=== PATIENT | male | born 1965 | race Caucasian/White ===

== ENCOUNTER 2023-12-03 08:53 | Observation (INO) | payer BC ==
--- NOTE | 2023-12-03 09:05 | ED ---
General Adult HPI - General Chief complaint: Chest Pain Stated complaint: Chest Pain, sent by Cardio Time Seen by Provider: 12/03/23 08:59 Source: patient, family, RN notes reviewed Mode of arrival: ambulatory Limitations: no limitations - History of Present Illness Initial comments: Patient is a pleasant 58-year-old male presenting to the emergency department with concerns for chest discomfort. Onset of symptoms was around 2 or 3 in the morning. Patient was watching TV at that time. Discomfort has improved and is mild at this time. Patient does have nausea and lightheadedness that are near resolved. Patient did feel a little bit short of breath earlier. No history of similar symptoms previously. No calf pain. Patient had a recent abnormal stress test around a month ago - Related Data Home Medications Medication Instructions Recorded Confirmed Aspirin EC [Ecotrin Low Dose] 81 mg PO DAILY 12/03/23 12/03/23 Atorvastatin [Lipitor] 20 mg PO DAILY 12/03/23 12/03/23 Losartan/Hydrochlorothiazide 1 tab PO DAILY 12/03/23 12/03/23 [Hyzaar 100-25 Tablet] Metoprolol Succinate (ER) [Toprol 25 mg PO DAILY 12/03/23 12/03/23 Xl] Omeprazole Magnesium [PriLOSEC OTC] 20 mg PO DAILY 12/03/23 12/03/23 amLODIPine [Norvasc] 2.5 mg PO DAILY 12/03/23 12/03/23 Allergies Allergy/AdvReac Type Severity Reaction Status Date / Time No Known Allergies Allergy Verified 12/03/23 10:12 Review of Systems ROS Statement: Those systems with pertinent positive or pertinent negative responses have been documented in the HPI. ROS Other: All systems not noted in ROS Statement are negative. Constitutional: Denies: fever Eyes: Denies: eye pain ENT: Denies: ear pain Respiratory: Denies: cough Cardiovascular: Reports: as per HPI, chest pain Endocrine: Denies: fatigue Gastrointestinal: Denies: abdominal pain Genitourinary: Denies: dysuria Past Medical History Past Medical History: GERD/Reflux, Hypertension History of Any Multi-Drug Resistant Organisms: None Reported Past Surgical History: No Surgical Hx Reported Past Anesthesia/Blood Transfusion Reactions: No Reported Reaction Smoking Status: Never smoker Past Alcohol Use History: Occasional Past Drug Use History: None Reported - Past Family History Father Family Medical History: Cancer General Exam Limitations: no limitations General appearance: alert, in no apparent distress Head exam: Present: normocephalic Eye exam: Present: normal appearance Neck exam: Present: normal inspection Respiratory exam: Present: normal lung sounds bilaterally. Absent: chest wall tenderness Cardiovascular Exam: Present: regular rate, normal rhythm Expanded Peripheral pulses: 2+: Radial (R), Radial (L), Posterior Tibialis (R), Posterior Tibialis (L) GI/Abdominal exam: Present: soft. Absent: tenderness Extremities exam: Present: normal inspection. Absent: pedal edema, calf tenderness Neurological exam: Present: alert Psychiatric exam: Present: normal affect, normal mood Skin exam: Present: normal color Course Vital Signs 12/03/23 12/03/23 08:55 09:27 Temperature 98 F 98 F Pulse Rate 84 78 Respiratory 18 18 Rate Blood Pressure 180/113 169/114 O2 Sat by Pulse 96 96 Oximetry EKG Findings - EKG Results: EKG: interpreted by REGI (Nonspecific intraventricular conduction delay), sinus rhythm, normal axis, normal ST/T Medical Decision Making - Medical Decision Making Was pt. sent in by a medical professional or institution (, PA, [employer]ERTY [employer], urgent care, hospital, or prison...) When possible be specific @ -No Did you speak to anyone other than the patient for history (EMS, parent, family, police, friend...)? What history was obtained from this source @ -Family is present and provides history including recent abnormal stress test Did you review nursing and triage notes (agree or disagree)? Why? @ -I reviewed and agree with nursing and triage notes Were old charts reviewed (outside hosp., previous admission, EMS record, old EKG, old radiological studies, urgent care reports/EKG's, prison records)? Report findings @ -No old charts were reviewed Differential Diagnosis (chest pain, altered mental status, abdominal pain women, abdominal pain men, vaginal bleeding, weakness, fever, dyspnea, syncope, headache, dizziness, GI bleed, back pain, seizure, CVA, palpatations, mental health, musculoskeletal)? @ -Differential Chest Pain: Stable Angina, Unstable Angina, STEMI, NSTEMI Aortic Dissection, Pneumothorax, Musculoskeletal, Esophageal Spasm GERD, Cholecystitis, Pancreatitis, Zoster, this is not meant to be an all-inclusive list. EKG interpreted by me (3pts min.). @ -As above X-rays interpreted by me (1pt min.). @ -Chest x-ray without acute abnormality CT interpreted by me (1pt min.). @ -None done U/S interpreted by me (1pt. min.). @ -None done What testing was considered but not performed or refused? (CT, X-rays, U/S, labs)? Why? @ -None What meds were considered but not given or refused? Why? @ -None Did you discuss the management of the patient with other professionals (professionals i.e. DrKatie, PA, [employer], lab, RT, psych nurse, transition social worker, director of contracts, teacher, product safety officer, nurse case management)? Give summary @ -[facility] physician group, practitioner Elieser who will admit covering Dr. Davis Was smoking cessation discussed for >3mins.? @ -No Was critical care preformed (if so, how long)? @ -No Were there social determinants of health that impacted care today? How? (Homelessness, low income, unemployed, alcoholism, drug addiction, transportation, low edu. Level, literacy, decrease access to med. care, assisted, rehab)? @ -No Was there de-escalation of care discussed even if they declined (Discuss DNR or withdrawal of care, Hospice)? DNR status @ -No What co-morbidities impacted this encounter? (DM, HTN, Smoking, COPD, CAD, Cancer, CVA, ARF, Chemo, Hep., AIDS, mental health diagnosis, sleep apnea, morbid obesity)? @ -Recent abnormal stress test Was patient admitted / discharged? Hospital course, mention meds given and route, prescriptions, significant lab abnormalities, going to OR and other pertinent info. @ -Patient reevaluated and updated. Patient will be admitted with cardiac consult. Patient sees Dr. Hilario. Admission orders placed. Undiagnosed new problem with uncertain prognosis? @ -No Drug Therapy requiring intensive monitoring for toxicity (Heparin, Nitro, Insulin, Cardizem)? @ -No Were any procedures done? @ -No Diagnosis/symptom? @ -Chest pain, hypertensive urgency Acute, or Chronic, or Acute on Chronic? @ -Acute, acute Uncomplicated (without systemic symptoms) or Complicated (systemic symptoms)? @ -Default Side effects of treatment? @ -No Exacerbation, Progression, or Severe Exacerbation? @ -No Poses a threat to life or bodily function? How? (Chest pain, [place], [place], pneumonia, PE, COPD, DKA, ARF, appy, cholecystitis, CVA, Diverticulitis, Homicidal, Suicidal, threat to staff... and all critical care pts) @ -Potential threat to cardiac function - Lab Data Result diagrams: 12/03/23 09:13 12/03/23 09:13 Lab Results 12/03/23 12/03/23 12/03/23 Range/Units 09:13 09:13 09:13 WBC 7.5 (3.8-10.6) k/uL RBC 4.60 (4.30-5.90) m/uL Hgb 15.1 (13.0-17.5) gm/dL Hct 43.9 (39.0-53.0) % MCV 95.5 (80.0-100.0) fL MCH 32.9 (25.0-35.0) pg MCHC 34.5 (31.0-37.0) g/dL RDW 12.7 (11.5-15.5) % Plt Count 313 (150-450) k/uL MPV 7.8 Neutrophils % 51 % Lymphocytes % 35 % Monocytes % 7 % Eosinophils % 4 % Basophils % 1 % Neutrophils # 3.8 (1.3-7.7) k/uL Lymphocytes # 2.7 (1.0-4.8) k/uL Monocytes # 0.5 (0-1.0) k/uL Eosinophils # 0.3 (0-0.7) k/uL Basophils # 0.1 (0-0.2) k/uL PT 10.8 (10.0-12.5) sec INR 1.0 (<1.2) APTT 26.0 (22.0-30.0) sec D-Dimer 0.20 (<0.60) mg/L FEU Sodium 141 (137-145) mmol/L Potassium 3.2 L (3.5-5.1) mmol/L Chloride 106 (98-107) mmol/L Carbon Dioxide 26 (22-30) mmol/L Anion Gap 9 mmol/L BUN 27 H (9-20) mg/dL Creatinine 0.73 (0.66-1.25) mg/dL Est GFR (CKD-EPI)AfAm >90 (>60 ml/min/1.73 sqM) Est GFR (CKD-EPI)NonAf >90 (>60 ml/min/1.73 sqM) Glucose 106 H (74-99) mg/dL Calcium 9.5 (8.4-10.2) mg/dL Magnesium 2.0 (1.6-2.3) mg/dL Total Bilirubin 0.8 (0.2-1.3) mg/dL AST 28 (17-59) U/L ALT 34 (4-49) U/L Alkaline Phosphatase 78 (38-126) U/L Troponin I (0.000-0.034) ng/mL Total Protein 6.9 (6.3-8.2) g/dL Albumin 4.2 (3.5-5.0) g/dL 12/03/23 Range/Units 09:13 WBC (3.8-10.6) k/uL RBC (4.30-5.90) m/uL Hgb (13.0-17.5) gm/dL Hct (39.0-53.0) % MCV (80.0-100.0) fL MCH (25.0-35.0) pg MCHC (31.0-37.0) g/dL RDW (11.5-15.5) % Plt Count (150-450) k/uL MPV Neutrophils % % Lymphocytes % % Monocytes % % Eosinophils % % Basophils % % Neutrophils # (1.3-7.7) k/uL Lymphocytes # (1.0-4.8) k/uL Monocytes # (0-1.0) k/uL Eosinophils # (0-0.7) k/uL Basophils # (0-0.2) k/uL PT (10.0-12.5) sec INR (<1.2) APTT (22.0-30.0) sec D-Dimer (<0.60) mg/L FEU Sodium (137-145) mmol/L Potassium (3.5-5.1) mmol/L Chloride (98-107) mmol/L Carbon Dioxide (22-30) mmol/L Anion Gap mmol/L BUN (9-20) mg/dL Creatinine (0.66-1.25) mg/dL Est GFR (CKD-EPI)AfAm (>60 ml/min/1.73 sqM) Est GFR (CKD-EPI)NonAf (>60 ml/min/1.73 sqM) Glucose (74-99) mg/dL Calcium (8.4-10.2) mg/dL Magnesium (1.6-2.3) mg/dL Total Bilirubin (0.2-1.3) mg/dL AST (17-59) U/L ALT (4-49) U/L Alkaline Phosphatase (38-126) U/L Troponin I <0.012 (0.000-0.034) ng/mL Total Protein (6.3-8.2) g/dL Albumin (3.5-5.0) g/dL Disposition Clinical Impression: Chest pain, Hypertensive urgency Disposition: ADMITTED IP TO THIS HOSP Condition: Serious Is patient prescribed a controlled substance at d/c from ED?: No Referrals: Jv Davis MD [Primary Care Provider] - 1-2 days Time of Disposition: 10:17
[2023-12-03] MEDS: ASPIRIN 81 MG PO STA (09:30)
[2023-12-03] MEDS: NITROGLYCERIN OINT 1 INCH/GM PACKET TOPICAL STA (09:30)
[2023-12-03 09:32] LABS: Basophils # (A) 0.1 k/uL (0-0.2); Basophils % (A) 1 %; Eosinophils # (A) 0.3 k/uL (0-0.7); Eosinophils % (A) 4 %; HCT 43.9 % (39.0-53.0); HGB 15.1 gm/dL (13.0-17.5); Lymphocytes # (A) 2.7 k/uL (1.0-4.8); Lymphocytes % (A) 35 %; MCH 32.9 pg (25.0-35.0); MCHC 34.5 g/dL (31.0-37.0); MCV 95.5 fL (80.0-100.0); Mean Platelet Volume 7.8; Monocytes # (A) 0.5 k/uL (0-1.0); Monocytes % (A) 7 %; Neutrophils # (A) 3.8 k/uL (1.3-7.7); Neutrophils % (A) 51 %; Platelet Count 313 k/uL (150-450); RDW 12.7 % (11.5-15.5); WBC 7.5 k/uL (3.8-10.6)
[2023-12-03 09:46] LABS: Prothrombin Time 10.8 sec (10.0-12.5)
[2023-12-03 09:48] LABS: ALT 34 U/L (4-49); AST 28 U/L (17-59); African American GFR (CKD) >90 (>60 ml/min/1.73 sqM); Albumin 4.2 g/dL (3.5-5.0); Alkaline Phosphatase 78 U/L (38-126); Anion Gap 9 mmol/L; Blood Urea Nitrogen 27 mg/dL (9-20); Calcium 9.5 mg/dL (8.4-10.2); Carbon Dioxide 26 mmol/L (22-30); Chloride 106 mmol/L (98-107); Glucose 106 mg/dL (74-99); Non-African American GFR(CKD) >90 (>60 ml/min/1.73 sqM); Potassium 3.2 mmol/L (3.5-5.1); Sodium 141 mmol/L (137-145); Total Bilirubin 0.8 mg/dL (0.2-1.3); Total Protein 6.9 g/dL (6.3-8.2)
--- NOTE | 2023-12-03 10:15 | XR ---
EXAMINATION TYPE: XR chest 2V DATE OF EXAM: 12/03/2023 COMPARISON: NONE TECHNIQUE: PA and lateral views submitted. HISTORY: Chest pain FINDINGS: The lungs are clear and there is no pneumothorax, pleural effusion, or focal pneumonia. Heart size normal and no overt failure. Osseous structures demonstrate hypertrophic and degenerative changes of the spine. Linear changes left lung base most typical of atelectasis. IMPRESSION: 1. No acute process.
[2023-12-03] MEDS ORDERED: NITROGLYCERIN SL TABS 0.4 MG TAB SUBLINGUAL PRN (10:17)
[2023-12-03] MEDS: LABETALOL 5 MG/ML VIAL MDV IVP STA (10:31)
[2023-12-03] MEDS ORDERED: ALPRAZolam 0.25 MG TAB PO PRN (11:15)
[2023-12-03] MEDS: ASPIRIN 325 MG TAB PO STA (11:19)
[2023-12-03] MEDS: amLODIPine 2.5 MG TAB PO SCH (11:19)
[2023-12-03] MEDS ORDERED: VERAPAMIL 2.5 MG/ML 2 ML AMP ONE (11:25)
[2023-12-03] MEDS ORDERED: fentaNYL (PF) 50 MCG/ML 2 ML AMP ONE (11:26)
[2023-12-03] MEDS ORDERED: LIDOCAINE 1% INJ 10MG/ML (20 ML MDV) ONE (11:26)
[2023-12-03] MEDS ORDERED: HEPARIN SODIUM 1,000 UN/ML (10ML VL) ONE (11:26)
[2023-12-03] MEDS: ATORVASTATIN 80 MG TAB PO STA (11:35)
[2023-12-03] MEDS: SODIUM CHLORIDE 0.9% 1,000 ML IV STA (11:35)
[2023-12-03] MEDS: SODIUM CHLORIDE 0.9% 1,000 ML IV ONE (11:47)
[2023-12-03] MEDS: MIDAZOLAM 2 MG/2 ML VIAL IVP ONE ×2 (12:02→12:08)
[2023-12-03] MEDS: fentaNYL (PF) 50 MCG/1 ML VIAL IVP ONE ×2 (12:02→12:08)
[2023-12-03] MEDS: HEPARIN SODIUM 1,000 UN/ML (10ML VL) IVP ONE (12:04)
[2023-12-03] MEDS: IOPAMIDOL-370 100ML BTL INTRATHECA ONE (12:19)
[2023-12-03] MEDS: NITROGLYCERIN OINT 1 INCH/GM PACKET TOPICAL SCH (13:12)
--- NOTE | 2023-12-03 13:22 | P.HPIM ---
History of Present Illness H&P Date: 12/03/23 History of Presenting Illness: Patient is a very pleasant 58-year-old male with a past medical history of hypertension, hyperlipidemia, and GERD. He presented to the emergency de partment with a chief complaint of chest pain/pressure. 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 Hilario. 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 Patient states this was accompanied by shortness of breath, mild dizziness, and nausea. Patient reports that this pain was persistent and continued so he came to the emergency department for evaluation. Patient reports by the time he arrived to the emergency department this pain had already started to subside and states it is now fully resolved. Patient denies any recent infections or illnesses, headache, changes in vision or hearing, palpitations, cough or congestion, abdominal pain, episodes of vomiting, or experiencing any numbness/tingling/weakness/swelling in his extremities. Patient did have a recent stress test completed outpatient and this was reported to have abnormal findings. He underwent evaluation in the emergency department. Vital signs upon arrival show elevated blood pressure of 180/113, heart rate 84, respiratory rate 18, temp 98.0 F, and SpO2 of 96% on room air. EKG was completed showing normal sinus rhythm at 73 bpm. Chest x-ray was negative for acute cardiopulmonary process. Labs were completed and reviewed. CBC unremar kable. Coagulation profile normal findings. D-dimer negative at 0.20. BMP revealing hypokalemia with potassium of 3.2 and mild prerenal azotemia with BUN of 27 otherwise normal findings. Blood glucose was 106. Magnesium 2.0. Liver profile unremarkable. Troponin was negative at less than 0.012. Patient admitted under our services with consultation to cardiology. Review of systems: Pertinent positives and negatives as discussed in HPI, a complete review of systems was performed and all other systems are negative. Physical exam: Vital signs reviewed and stable. General: Nontoxic, no distress and appears stated age. Derm: Skin warm and dry, normal coloration for ethnicity. Head: Atraumatic, normocephalic and symmetric. Eyes: EOMs intact, no lid lag, and anicteric sclera Mouth: no lip lesions, mucus membranes moist Cardiovascular: regular rate and rhythm with normal S1S2, no murmur, positive posterior tibial pulses bilaterally, and cap refill < 2 seconds. Lungs: Respirations even, regular, and unlabored on room air. Lungs CTA bilaterally, no rhonchi, no rales, no wheezing, and no accessory muscle usage. Abdominal: soft, nontender to palpation, no guarding, no appreciable organomegaly Ext: ROM intact. No gross muscle atrophy, no edema, no contractures Neuro: Speech clear, face symmetrical and CN II-XII grossly intact with no noted focal neuro deficits Psych: Alert and oriented to person, place, time, and situation. Appropriate and pleasant affect. Assessment and Plan of Care: Chest pain, rule out acute coronary event Hypertension Hyperlipidemia GERD -Cardiology consulted, appreciate recommendations -Telemetry monitoring -Trend troponins -Cardiac diet -Continue aspirin 81 mg daily, atorvastatin 20 mg daily, losartan/hydrochlorothiazide 50-12.5 mg 2 tabs daily, and metoprolol 25 mg daily. -Lipid profile with a.m. labs. -Echocardiogram Data and imaging reviewed: As stated above in HPI The patient is admitted with an anticipated less than 2 midnight stay for evaluation of chest pain CODE STATUS:Full Code DVT prophylaxis: Heparin Anticipated discharge date: Likely within the next [address]: Home Patient was seen independently by Nurse Practitioner. This document was prepared using [employer] dictation software. Please allow for errors in vision therapist while rare they do occur. Elieser Montano NP rendered care for this patient independently, reviewed the findings and plan as documented in the note above. I did not physically speak with or examine the patient on this date. Past Medical History Past Medical History: GERD/Reflux, Hypertension History of Any Multi-Drug Resistant Organisms: None Reported Past Surgical History: No Surgical Hx Reported Past Anesthesia/Blood Transfusion Reactions: No Reported Reaction Smoking Status: Never smoker Past Alcohol Use History: Occasional Past Drug Use History: None Reported - Past Family History Father Family Medical History: Cancer Medications and Allergies Home Medications Medication Instructions Recorded Confirmed Type Aspirin EC [Ecotrin Low Dose] 81 mg PO DAILY 12/03/23 12/03/23 History Atorvastatin [Lipitor] 20 mg PO DAILY 12/03/23 12/03/23 History Losartan/Hydrochlorothiazide 1 tab PO DAILY 12/03/23 12/03/23 History [Hyzaar 100-25 Tablet] Metoprolol Succinate (ER) [Toprol 25 mg PO DAILY 12/03/23 12/03/23 History XL] Omeprazole Magnesium [PriLOSEC OTC] 20 mg PO DAILY 12/03/23 12/03/23 History amLODIPine [Norvasc] 2.5 mg PO DAILY 12/03/23 12/03/23 History Allergies Allergy/AdvReac Type Severity Reaction Status Date / Time No Known Allergies Allergy Verified 12/03/23 10:12 Physical Exam Vitals: Vital Signs Temp Pulse Resp BP Pulse Ox 12/03/23 09:27 98 F 78 18 169/114 96 12/03/23 08:55 98 F 84 18 180/113 96 Intake and Output 12/02/23 12/03/23 12/03/23 22:59 06:59 14:59 Other: Weight 97.522 kg Results CBC & Chem 7: 12/03/23 09:13 12/03/23 09:13 Labs: Abnormal Lab Results - Last 24 Hours (Table) 12/03/23 Range/Units 09:13 Potassium 3.2 L (3.5-5.1) mmol/L BUN 27 H (9-20) mg/dL Glucose 106 H (74-99) mg/dL
[2023-12-03 13:29] VITALS: RESP 16; TEMP 97.6
[2023-12-03] MEDS: POTASSIUM CHLORIDE ER 20 MEQ TAB.ER PO STA (14:11)
--- NOTE | 2023-12-03 16:20 | P.CARDCATH ---
Description of Procedure: PROCEDURES PERFORMED: Left heart catheterization, bilateral coronary angiography, ultrasound guided arterial access, iFR RCA INDICATION: Unstable angina, abnormal stress test CONSENT:I have discussed the risks, benefits and alternative therapies for the above-mentioned procedure and for both sedation/analgesia as well as necessary blood product administration, if indicated, as they pertain to this patient. The patient has indicated understanding and acceptance of the risks and procedures discussed. PROCEDURE: After the risks, benefits and alternatives of the above mentioned procedure explained in detail with the patient, informed consent was obtained. Patient was taken to the catheterization lab and prepped and draped in usual fashion. Ultrasound guidance was used to assess for arterial access. 1% lidocaine was used to anesthetize the right radial artery. A 6-Kazakh sheath was placed in the right radial artery using modified Seldinger technique and ultrasound guidance. Left coronary angiography was performed with a 5-Kazakh JL 3.5 catheter and right coronary angiography was performed with a 5-Kazakh FR5 catheter in various views. A 5-Kazakh FR5 catheter was inserted into the left ventricle and pressure measurements were obtained. The decision was made to perform iFR of the RCA. Heparin was given. A 0.014 pressure wire was advanced through the FR5 catheter and normalized. It was then advanced 1 cm to the distal RCA lesion and iFR was performed and was normal at 0.99. The right radial sheath was removed and a TR band was placed with hemostasis achieved. The patient tolerated the procedure well. Patient was transported back to the post catheterization holding area in stable condition. Conscious Sedation: Patient was monitored under the direct supervision of myself for conscious sedation using Versed and fentanyl for a total duration of 18 minutes HEMODYNAMICS: aorta: 137/72 LV: 136/5, LVEDP 16 SELECTIVE CORONARY ARTERIOGRAPHY: LEFT MAIN: The left main is a large caliber vessel which bifurcates into the LAD and circumflex. There is no significant stenosis. LEFT ANTERIOR DESCENDING CORONARY ARTERY: LAD is a large caliber vessel which wraps around to the apex. There a proximal LAD 20% stenosis and otherwise mild luminal irregularities. LEFT CIRCUMFLEX CORONARY ARTERY: Left circumflex is a large caliber vessel with mild luminal irregularities. RIGHT CORONARY ARTERY: The right coronary artery is a large caliber vessel which gives off a PDA and PLV branch and is the dominant vessel. There is a proximal RCA 50% stenosis followed by a mid RCA 20% and a distal RCA 30% stenosis FINAL IMPRESSION: 1. CAD as described above including 50% proximal RCA, 20% LAD stenosis 2. Mildly elevated left sided filling pressures 3. Normal iFR RCA PLAN: 1. Aggressive risk factor modification per most recent ACC/AHA guidelines. 2. Treat RCA medically with normal iFR and appearing 50% angiographically
--- NOTE | 2023-12-03 16:23 | P.CRDCN ---
History of Present Illness History of present illness: HISTORY OF PRESENTING ILLNESS Patient is a pleasant 58-year-old male with history of hypertension, hyperlipidemia, GERD. He follows in the office with myself. He has been having intermittent episodes of chest pain and he did have previous stress test which showed small area of inducible ischemia. He has been attempted on antianginal medications without much success. We had attempted heart catheterization as an outpatient however this was denied by insurance. He had recurrence of symptoms yesterday and therefore presented to emergency department. EKG shows normal sinus rhythm, normal axis, incomplete right bundle-branch block with nonspecific 0.[address] depressions in the anterolateral leads. Hemoglobin 15.1, d-dimer 0.2, potassium 3.2, creatinine 0.7, troponins normal 2. REVIEW OF SYSTEMS At the time of my exam: CONSTITUTIONAL: Denies fever or chills. CARDIOVASCULAR: +chest pain, +shortness of breath, no orthopnea, PND or palpitations. RESPIRATORY: Denies cough. GASTROINTESTINAL: Denies abdominal pain, diarrhea, constipation, nausea or vomiting. MUSCULOSKELETAL: Denies myalgias. NEUROLOGIC: Denies numbness, tingling or weakness. ENDOCRINE: Denies fatigue, weight change, polydipsia or polyurina. GENITOURINARY: Denies burning, hematuria or urgency with micturation. HEMATOLOGIC: Denies history of anemia or bleeding. PHYSICAL EXAMINATION Vital signs reviewed. CONSTITUTIONAL: No apparent distress. HEENT: Head is normocephalic. Pupils are equal, round. Sclerae anicteric. Mucous membranes of the mouth are moist. No JVD. No carotid bruit. CHEST EXAMINATION: Lungs are clear to auscultation. No chest wall tenderness is noted on palpation or with deep breathing. HEART EXAMINATION: Regular rate and rhythm. S1, S2 heard. No murmurs, gallops or rub. ABDOMEN: Soft, nontender. Positive bowel sounds. EXTREMITIES: 2+ peripheral pulses, no lower extremity edema and no calf tenderness. NEUROLOGIC EXAMINATION: Patient is awake, alert and oriented x3. ASSESSMENT precordial chest pain Abnormal stress test Hypertension Hyperlipidemia Hypokalemia PLAN Discussed risks and benefits of heart catheterization patient agreeable. Previous workup has been performed in the office. If heart catheterization normal, patient may be discharged home from a cardiac standpoint. Past Medical History Past Medical History: GERD/Reflux, Hypertension History of Any Multi-Drug Resistant Organisms: None Reported Past Surgical History: No Surgical Hx Reported Past Anesthesia/Blood Transfusion Reactions: No Reported Reaction Smoking Status: Never smoker Past Alcohol Use History: Occasional Past Drug Use History: None Reported - Past Family History Father Family Medical History: Cancer Medications and Allergies Home Medications Medication Instructions Recorded Confirmed Type Aspirin EC [Ecotrin Low Dose] 81 mg PO DAILY 12/03/23 12/03/23 History Atorvastatin [Lipitor] 20 mg PO DAILY 12/03/23 12/03/23 History Losartan/Hydrochlorothiazide 1 tab PO DAILY 12/03/23 12/03/23 History [Hyzaar 100-25 Tablet] Metoprolol Succinate (ER) [Toprol 25 mg PO DAILY 12/03/23 12/03/23 History Xl] Omeprazole Magnesium [PriLOSEC OTC] 20 mg PO DAILY 12/03/23 12/03/23 History amLODIPine [Norvasc] 2.5 mg PO DAILY 12/03/23 12/03/23 History Allergies Allergy/AdvReac Type Severity Reaction Status Date / Time No Known Allergies Allergy Verified 12/03/23 10:12 Physical Exam Vitals: Vital Signs Temp Pulse Pulse Resp BP BP Pulse Ox 12/03/23 12:57 97.6 F 70 16 137/77 96 12/03/23 11:36 74 20 125/86 95 12/03/23 10:49 71 16 135/89 94 L 12/03/23 10:29 71 18 146/100 96 12/03/23 09:27 98 F 78 18 169/114 96 12/03/23 08:55 98 F 84 18 180/113 96 Intake and Output 12/03/23 12/03/23 12/03/23 06:59 14:59 22:59 Intake Total 200 Balance 200 Intake: IV 200 Other: Weight 97.522 kg Results 12/03/23 09:13 12/03/23 09:13 Cardiac Enzymes 12/03/23 12/03/23 12/03/23 Range/Units 09:13 09:13 13:49 AST 28 (17-59) U/L Troponin I <0.012 <0.012 (0.000-0.034) ng/mL Coagulation 12/03/23 Range/Units 09:13 PT 10.8 (10.0-12.5) sec APTT 26.0 (22.0-30.0) sec CBC 12/03/23 Range/Units 09:13 WBC 7.5 (3.8-10.6) k/uL RBC 4.60 (4.30-5.90) m/uL Hgb 15.1 (13.0-17.5) gm/dL Hct 43.9 (39.0-53.0) % Plt Count 313 (150-450) k/uL Comprehensive Metabolic Panel 12/03/23 Range/Units 09:13 Sodium 141 (137-145) mmol/L Potassium 3.2 L (3.5-5.1) mmol/L Chloride 106 (98-107) mmol/L Carbon Dioxide 26 (22-30) mmol/L BUN 27 H (9-20) mg/dL Creatinine 0.73 (0.66-1.25) mg/dL Glucose 106 H (74-99) mg/dL Calcium 9.5 (8.4-10.2) mg/dL AST 28 (17-59) U/L ALT 34 (4-49) U/L Alkaline Phosphatase 78 (38-126) U/L Total Protein 6.9 (6.3-8.2) g/dL Albumin 4.2 (3.5-5.0) g/dL Current Medications Generic Name Dose Route Start Last Admin Trade Name Freq PRN Reason Stop Dose Admin Alprazolam 0.25 mg 12/03/23 11:15 Alprazolam 0.25 Mg Tab PO Q6HR PRN Mild Anxiety Amlodipine Besylate 2.5 mg 12/03/23 10:30 12/03/23 11:19 Amlodipine 2.5 Mg Tab PO Not Given DAILY CHRISTINE Aspirin 325 mg 12/04/23 09:00 Aspirin 325 Mg Tab PO DAILY CHRISTINE Atorvastatin Calcium 20 mg 12/04/23 09:00 Atorvastatin 20 Mg Tab PO DAILY CHRISTINE HCTZ/Losartan Potassium 2 each 12/04/23 09:00 Losartan-Hctz 50-12.5 Mg 1 Each Tab PO DAILY CHRISTINE Heparin Sodium (Porcine) 10, 1,001 mls @ 999 mls/hr 12/04/23 07:00 000 unit/ Sodium Chloride IRRIGATION 12/04/23 23:00 ONCE PRN INTRA-OP Heparin Sodium (Porcine) 2,500 250.5 mls @ 250 mls/hr 12/04/23 07:00 unit/ Sodium Chloride IRRIGATION 12/04/23 23:00 ONCE PRN INTRA-OP Sodium Chloride 1,000 mls @ 75 mls/hr 12/03/23 11:18 12/03/23 11:35 Saline 0.9% IV 12/04/23 00:37 75 mls/hr .[id number] STA Administration Metoprolol Succinate 25 mg 12/04/23 09:00 Metoprolol Succinate (Er) 25 Mg Tab.Er.24h PO DAILY CHRISTINE Nitroglycerin 0.4 mg 12/03/23 10:17 Nitroglycerin Sl Tabs 0.4 Mg Tab SUBLINGUAL Q5M PRN Chest Pain Nitroglycerin 1 inch 12/03/23 12:00 12/03/23 13:12 Nitroglycerin Oint 1 Inch/Gm Packet TOPICAL Not Given Q6HR CHRISTINE Pantoprazole Sodium 40 mg 12/04/23 07:30 Pantoprazole 40 Mg Tablet PO 0730 CHRISTINE Intake and Output 12/03/23 12/03/23 12/03/23 06:59 14:59 22:59 Intake Total 200 Balance 200 Intake: IV 200 Other: Weight 97.522 kg Patient Weight 12/04/23 06:59 Weight 97.522 kg 12/03/23 09:13 12/03/23 09:13
--- NOTE | 2023-12-03 17:17 | P.DS ---
Providers Date of admission: 12/03/23 10:17 Expected date of discharge: 12/03/23 Attending physician: Osmel Lagos MD Consults: 12/03/23 10:17 Consult Physician Urgent Consulting Provider: Zak Hilario Consult Reason/Comments: Chest pain, hypertensive urgency Do you want consulting provider notified?: Yes Primary care physician: Jv Enriquez [facility] Course: Discharge Diagnosis: Chest pain, acute coronary event ruled out. Hypertension Hyperlipidemia GERD Hospital Course: Patient is a very pleasant 58-year-old male with a past medical history of hypertension, hyperlipidemia, and GERD. He presented to the emergency department with a chief complaint of chest pain/pressure. Patient reports he has been experiencing intermittent pain/pressures in his chest and follows with budget controller, Dr. Hilario. 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 Patient states this was accompanied by shortness of breath, mild dizziness, and nausea. Patient reports that this pain was persistent and continued so he came to the emergency department for evaluation. Patient reports by the time he arrived to the emergency department this pain had already started to subside and states it is now fully resolved. Patient denies any recent infections or illnesses, headache, changes in vision or hearing, palpitations, cough or congestion, abdominal pain, episodes of vomiting, or ex periencing any numbness/tingling/weakness/swelling in his extremities. Patient did have a recent stress test completed outpatient and this was reported to have abnormal findings. He underwent evaluation in the emergency department. Vital signs upon arrival show elevated blood pressure of 180/113, heart rate 84, respiratory rate 18, temp 98.0 F, and SpO2 of 96% on room air. EKG was completed showing normal sinus rhythm at 73 bpm. Chest x-ray was negative for acute cardiopulmonary process. Labs were completed and reviewed. CBC unremarkable. Coagulation profile normal findings. D-dimer negative at 0.20. BMP revealing hypokalemia with potassium of 3.2 and mild prerenal azotemia with BUN of 27 otherwise normal findings. Blood glucose was 106. Magnesium 2.0. Liver profile unremarkable. Troponin was negative at less than 0.012. Patient admitted under our services with consultation to cardiology. Troponins were trended all negative at less than 0.012 x 3 draws. Patient was evaluated by budget controller and taken for cardiac catheterization. Cardiac cath revealed moderate nonobstructive cardiovascular disease with approximately 50% stenosis of proximal RCA, 20% mid RCA stenosis, 30% distal RCA stenosis and 20% stenosis of LAD. Automation Controls Expert recommending aggressive risk factor modifications and medical management at this time. Cardiology clearing patient from cardiac per spective for discharge recommending outpatient follow-up in their office in 1 week. Echocardiogram was completed but results not available at this time, patient to discuss results with budget controller at follow-up appointment. Medically, patient stable for discharge at this time. Patient to follow-up outpatient with PCP in 1 to 2 days and again budget controller in 1 week. Physical exam: Vital signs reviewed and stable. General: Nontoxic, no distress and appears stated age. Derm: Skin warm and dry, normal coloration for ethnicity. Head: Atraumatic, normocephalic and symmetric. Eyes: EOMs intact, no lid lag, and anicteric sclera Mouth: no lip lesions, mucus membranes moist Cardiovascular: regular rate and rhythm with normal S1S2, no murmur, positive posterior tibial pulses bilaterally, and cap refill < 2 seconds. Lungs: Respirations even, regular, and unlabored on room air. Lungs CTA bilaterally, no rhonchi, no rales, no wheezing, and no accessory muscle usage. Abdominal: soft, nontender to palpation, no guarding, no appreciable organomegaly Ext: ROM intact. No gross muscle atrophy, no edema, no contractures Neuro: Speech clear, face symmetrical and CN II-XII grossly intact with no noted focal neuro deficits Psych: Alert and oriented to person, place, time, and situation. Appropriate and pleasant affect. A total of 31 minutes of time were spent preparing this complex discharge summary. Pt was discharged on 12/03/2023 at 5:15 PM. Patient was seen independently by Nurse Practitioner. This document was prepared using [employer] dictation software. Please allow for errors in sheeting puller while rare they do occur. Elieser Montano NP rendered care for this patient independently, reviewed the findings and plan as documented in the note above. I did not physically speak with or examine the patient on this date. Patient Condition at Discharge: Stable Plan - Discharge Summary New Discharge Prescriptions: Continue Atorvastatin [Lipitor] 20 mg PO DAILY Aspirin EC [Ecotrin Low Dose] 81 mg PO DAILY amLODIPine [Norvasc] 2.5 mg PO DAILY Metoprolol Succinate (ER) [Toprol XL] 25 mg PO DAILY Omeprazole Magnesium [PriLOSEC OTC] 20 mg PO DAILY Losartan/Hydrochlorothiazide [Hyzaar 100-25 Tablet] 1 tab PO DAILY Discharge Medication List Aspirin EC [Ecotrin Low Dose] 81 mg PO DAILY 12/03/23 [History] Atorvastatin [Lipitor] 20 mg PO DAILY 12/03/23 [History] Losartan/Hydrochlorothiazide [Hyzaar 100-25 Tablet] 1 tab PO DAILY 12/03/23 [History] Metoprolol Succinate (ER) [Toprol XL] 25 mg PO DAILY 12/03/23 [History] Omeprazole Magnesium [PriLOSEC OTC] 20 mg PO DAILY 12/03/23 [History] amLODIPine [Norvasc] 2.5 mg PO DAILY 12/03/23 [History] Follow up Appointment(s)/Referral(s): Zak Hilario DO [STAFF PHYSICIAN] - 1 Week (APPOINTMENT MADE ON December @ 8:15PM ) Jv Davis MD [Primary Care Provider] - 1-2 days (OFFICE CLOSED - PLEASE CALL TO MAKE APPOINTMENT ) Patient Instructions/Handouts: Moderate Sedation (DC), After Radial Heart Catheterization (GEN) Activity/Diet/Wound Care/Special Instructions: Activity: As tolerated. Take breaks as needed. Diet: Heart healthy and carb consistent diet. Avoid salts, or foods with hidden salts such as canned or boxed foods and frozen dinners. Extra salt makes your heart work harder and traps the fluid in your body for longer. Special Instructions: Take all of your medications as directed and remember to keep all of your doctor's appointments and follow-up as needed. *NO LIFTING, PUSHING, OR PULLING ANYTHING OVER 5 POUNDS FOR 5 DAYS *NO DRIVING FOR 3 DAYS *YOU CAN REMOVE YOUR DRESSING Echocardiogram was completed but results not available at time of discharge, per cardiology you may receive and discuss these results with your budget controller at the follow-up appointment. Thank you for allowing us to participate in your care, it was truly a pleasure having you for our patient!!! Discharge Disposition: HOME SELF-CARE
[2023-12-03 17:36] VITALS: BP 126/75; PULSE 71
[2023-12-03] MEDS ORDERED: METOPROLOL TARTRATE 25 MG TAB PO SCH (21:00)
[2023-12-04] MEDS ORDERED: HEPARIN SODIUM,PORCINE 10,000 UNIT in SODIUM CHLORIDE 0.9% 1,000 ML IRRIGATION PRN (07:00)
[2023-12-04] MEDS ORDERED: HEPARIN SODIUM,PORCINE (1 ML) 2,500 UNIT in SODIUM CHLORIDE 0.9% 250 ML IRRIGATION PRN (07:00)
[2023-12-04] MEDS ORDERED: PANTOPRAZOLE 40 MG TABLET PO SCH (07:30)
[2023-12-04] MEDS ORDERED: METOPROLOL SUCCINATE (ER) 25 MG TAB.ER.24H PO SCH (09:00)
[2023-12-04] MEDS ORDERED: LOSARTAN-HCTZ 50-12.5 MG 1 EACH TAB PO SCH (09:00)
[2023-12-04] MEDS ORDERED: ASPIRIN 325 MG TAB PO SCH (09:00)
[2023-12-04] MEDS ORDERED: ATORVASTATIN 20 MG TAB PO SCH (09:00)
--- NOTE | 2023-12-04 19:31 | CA ---
Transthoracic Echo Report Name: Wander Pritchett Age: 58 Gender: M : 1965 Exam Date: 12/03/2023 10:57 Exam Location: [facility] Ht (in): 71 Wt (lb): 215 Ordering Physician: Asif Potter DO Attending/Referring Phys: Genetic Technologist Betzaida Jones RDCS Procedure CPT: Indications: CP Cardiac Hx: Technical Quality: Good Contrast 1: Total Dose (mL): Contrast 2: Total Dose (mL): MEASUREMENTS (Male / Female) Normal Values 2D ECHO LV Diastolic Diameter PLAX 6.1 cm 4.2 - 5.9 / 3.9 - 5.3 cm LV Systolic Diameter PLAX 3.9 cm IVS Diastolic Thickness 1.1 cm 0.6 - 1.0 / 0.6 - 0.9 cm LVPW Diastolic Thickness 1.0 cm 0.6 - 1.0 / 0.6 - 0.9 cm LV Relative Wall Thickness 0.3 RV Internal Dim ED PLAX 3.4 cm LA Systolic Diameter LX 4.3 cm 3.0 - 4.0 / 2.7 - 3.8 cm LV Diastolic Volume MOD 4C 139.4 cm??? LV Systolic Volume MOD 4C 72.1 cm??? LV Ejection Fraction MOD 4C 48.3 % LV Cardiac Index MOD 4C 2201.7 cm???/min???m??? LV Diastolic Length 4C 9.0 cm LV Systolic Length 4C 7.6 cm LV Diastolic Volume MOD 2C 140.2 cm??? LV Systolic Volume MOD 2C 65.9 cm??? LV Ejection Fraction MOD 2C 53.0 % LV Cardiac Index MOD 2C 2429.1 cm???/min???m??? LV Diastolic Length 2C 8.2 cm LV Systolic Length 2C 6.9 cm LA Volume 55.2 cm??? 18 - 58 / 22 - 52 cm??? LA Volume Index 24.7 cm???/m??? 16 - 28 cm???/m??? M-MODE Aortic Root Diameter MM 3.6 cm MV E Point Septal Separation 0.6 cm DOPPLER AV Peak Velocity 117.5 cm/s AV Peak Gradient 5.5 mmHg TR Peak Velocity 205.2 cm/s TR Peak Gradient 16.8 mmHg FINDINGS Left Ventricle Left ventricular ejection fraction is estimated at 50-55 %. Mildly increased left ventricular diastolic diameter. Left ventricular wall thickness normal. No obvious regional wall motion abnormalities. Right Ventricle Mild right ventricular dilatation. Unable to estimate the right ventricular systolic pressure. Right Atrium Normal right atrial size. Left Atrium Mildly increased left atrial diameter. Mitral Valve Structurally normal mitral valve. Trace mitral regurgitation. Aortic Valve Trileaflet aortic valve. No aortic valve stenosis or regurgitation. Tricuspid Valve Structurally normal tricuspid valve. No tricuspid regurgitation. Pulmonic Valve Structurally normal pulmonic valve. Trace pulmonic regurgitation. Pericardium No pericardial effusion. Aorta Normal size aortic root and proximal ascending aorta. CONCLUSIONS Left ventricular ejection fraction is estimated at 50-55 %. No obvious regional wall motion abnormalities. Mild right ventricular dilatation. No major valve dysfunction Previewed by: Dr Wallace Rodriguez (Electronically Signed) Final Date: 04 December 2023 19:30
== END 2023-12-03 17:35 | disposition home or self-care (01) ==
LOC: EC 08:53 → 6NMEDSUR 10:17
PROVIDERS: ADMIT Student in an Organized Health Care Education/Training Program; ATTEND Student in an Organized Health Care Education/Training Program
DX: R07.2 Precordial pain (principal); I16.0 Hypertensive urgency; E87.6 Hypokalemia; I25.110 Atherosclerotic heart disease of native coronary artery with unstable angina pectoris; R94.39 Abnormal result of other cardiovascular function study; I45.10 Unspecified right bundle-branch block; R79.89 Other specified abnormal findings of blood chemistry; I10 Essential (primary) hypertension; E78.5 Hyperlipidemia, unspecified; K21.9 Gastro-esophageal reflux disease without esophagitis; Z79.82 Long term (current) use of aspirin; Z79.899 Other long term (current) drug therapy
CPT/HCPCS: 96374; 99285; 36415; 93005; 93306; 93571; 93458; 76937; 85379; 80053; 83735; 84484; 85025; 85610; 85730; 71046; G0378; C1769 ×3; J2250; J1644; Q9967; J3010; J1920